=== PATIENT | male | born 1960 | race American Indian/Alaskan Native ===

== ENCOUNTER 2017-10-15 07:06 | Emergency (ER) | payer MEDICARE ==
--- NOTE | 2017-10-15 08:10 | Emergency Department Report ---
Upper Extremity - HPI Chief Complaint: Extremity Injury, Upper Stated Complaint: HAND AND SHOULDER PAIN Time Seen by Provider: 10/15/17 08:06 Upper Extremity: Left Hand, Right Shoulder, Right Hand Occurred When: >5 Days (one month ago) Mechanism: Other (flare-up) Symptoms: Yes Pain with Movement, Yes Swelling, No Deformity, No Limited Range of Movement, No Numbness, No Weakness, No Bruising/Ecchymosis, No Laceration or Abrasion Other History: Patient reports right hand and wrist pain that started one month ago. He typically takes Ibuprofen to control his arthritis, however he is currently out of medications ED Review of Systems ROS: Stated complaint: HAND AND SHOULDER PAIN Other details as noted in HPI Comment: All other systems reviewed and negative Constitutional: denies: chills, diaphoresis, fever, malaise Respiratory: denies: cough, orthopnea, shortness of breath, SOB with exertion, SOB at rest, stridor, wheezing Cardiovascular: denies: chest pain, palpitations, dyspnea on exertion, orthopnea , edema, syncope, paroxysmal nocturnal dyspnea Endocrine: denies: excessive sweating, intolerance to cold, intolerance to heat Gastrointestinal: denies: abdominal pain, nausea, vomiting, diarrhea Musculoskeletal: joint swelling (right hand and wrist). denies: back pain Skin: denies: rash, lesions, change in color, change in hair/nails, pruritus Neurological: denies: headache, weakness, numbness, paresthesias, confusion Hematological/Lymphatic: denies: easy bleeding, easy bruising, swollen glands ED Past Medical Hx - Past Medical History Previous Medical History?: Yes Hx Diabetes: Yes Hx of Cancer: Yes Additional medical history: Gout - Surgical History Past Surgical History?: No - Social History Smoking Status: Never Smoker Substance Use Type: None - Medications Home Medications: Home Medications Medication Instructions Recorded Confirmed Last Taken Type Indomethacin 50 mg PO Q8H #30 capsule 10/15/17 Unknown Rx Upper Extremity Exam - Exam General: Vital signs noted. No distress. Alert and acting appropriately. Head and Torso: No HEENT Abnormality, No Neck Tenderness, No Chest/Lungs Abnormality, No Abdominal Tenderness, No Back Tenderness Shoulder Exam: Yes Normal Range of Motion in Shoulder, No Shoulder Tenderness, No Clavicle Tenderness, No Shoulder Deformity, No AC Joint Tenderness Arm Exam: No Arm/Humerus Tenderness, No Arm Deformity Elbow: No Elbow Tenderness, No Normal Range of Motion in Elbow, No Elbow Deformity Forearm: No Forearm Tenderness, No Forearm Deformity, No Pain with Pronation, No Pain with Supination Wrist: Yes Wrist Tenderness (medial and lateral), Yes Normal ROM in Wrist, No Wrist Deformity, No Snuffbox Tenderness, No Pain with Axial Thumb Compression Hand: Yes Hand Tenderness (dorsum), Yes Normal ROM in Digit(s), No Hand Deformity, No Digit Tenderness, No Digit(s) Deformity, No Tendon Dysfunction CMS Exam: No Broken Skin, No Normal Distal Pulses, No Normal Capillary Refill, No Normal Distal Sensation ED Course Vital Signs 10/15/17 07:16 Temperature 97.8 F Pulse Rate 77 Respiratory 20 Rate Blood Pressure 128/90 O2 Sat by Pulse 96 Oximetry ED Medical Decision Making - Lab Data Vital Signs 10/15/17 07:16 Temperature 97.8 F Pulse Rate 77 Respiratory 20 Rate Blood Pressure 128/90 O2 Sat by Pulse 96 Oximetry - Medical Decision Making During the course of ED, all other systems are unremarkable except for documentation in HPI. Patient was sent home with a prescription for Indomethacin and a referral for a PCP and [employer] for ongoing care, he verbalized understanding. He was instructed to follow up with the selective referral given at discharge. Eat a low-purine diet, avoid ingestion for alcoholic drinks, particularly beer, sodas or foods sweetened with high fructose corn syrup in order to lessen flare-ups associated with gout. Maintenance of high level of hydration with water is recommended. - Differential Diagnosis Right Upper Extremity Arthritis, Right Upper Extremity Gout Flare-Up, Critical care attestation.: If time is entered above; I have spent that time in minutes in the direct care of this critically ill patient, excluding procedure time. ED Disposition Clinical Impression: Arthritis Disposition: DC-01 TO HOME OR SELFCARE Is pt being admited?: No Does the pt Need Aspirin: No Condition: Stable Instructions: Rheumatoid Arthritis (ED) Additional Instructions: Take medication as directed. Follow up with the selective referral given at discharge. Eat a low-purine diet, avoid ingestion for alcoholic drinks, particularly beer, sodas or foods sweetened with high fructose corn syrup in order to lessen flare-ups associated with gout. Maintenance of high level of hydration with water is recommended. Prescriptions: Indomethacin 50 mg PO Q8H #30 capsule Referrals: PRIMARY CARE, [Primary Care Provider] - 3-5 Days YOANNA BHAGAT MD [Staff Physician] - 3-5 Days HODAN CUNNINGHAM MD, PHD [Staff Physician] - 3-5 Days Forms: Work/School Release Form(ED) Time of Disposition: 08:21
[2017-10-15 08:31] VITALS: BP 133/84
== END 2017-10-15 08:32 | disposition home or self-care (01) ==
LOC: ED 07:06
DX: M19.031 Primary osteoarthritis, right wrist (principal); E11.9 Type 2 diabetes mellitus without complications
CPT/HCPCS: 99282